=== PATIENT | male | born 1960 | race Caucasian/White ===

== ENCOUNTER 2020-10-14 11:54 | Emergency (ER) | payer MEDICAID ==
[~2020-10-14] VITALS: Ht 185.4 cm; Wt 93.2 kg
[2020-10-14 11:55] VITALS: BP 156/78
[2020-10-14] MEDS ORDERED: ATOR10TA84 PO (12:01)
[2020-10-14] MEDS ORDERED: LISI-892 PO (12:01)
[2020-10-14] MEDS ORDERED: KETOROLAC TROMETHAMINE 60 MG/2 ML VIAL IM ONE (12:30)
[2020-10-14] MEDS ORDERED: METHOCARBAMOL 500 MG TABLET PO ONE (12:30)
== END 2020-10-14 13:50 | disposition home or self-care (01) ==
LOC: EMS 11:59
DX: S53.402A Unspecified sprain of left elbow, initial encounter (principal); S16.1XXA Strain of muscle, fascia and tendon at neck level, initial encounter; S70.02XA Contusion of left hip, initial encounter; E78.00 Pure hypercholesterolemia, unspecified; I10 Essential (primary) hypertension; Z79.899 Other long term (current) drug therapy; W19.XXXA Unspecified fall, initial encounter; Y93.89 Activity, other specified; Y92.89 Other specified places as the place of occurrence of the external cause; Y99.8 Other external cause status
CPT/HCPCS: 73070; 73503; 96372; 99284; J1885